=== PATIENT | male | born 1995 | race Caucasian/White ===

== ENCOUNTER 2016-09-09 19:24 | Emergency (ER) | payer OTHER | END 2016-09-09 20:20 | disposition home or self-care (01) | LOC: ER 19:24 | DX: S39.012A Strain of muscle, fascia and tendon of lower back, initial encounter (principal); G43.909 Migraine, unspecified, not intractable, without status migrainosus; F17.210 Nicotine dependence, cigarettes, uncomplicated; Z88.6 Allergy status to analgesic agent; X50.0XXA Overexertion from strenuous movement or load, initial encounter; Y92.009 Unspecified place in unspecified non-institutional (private) residence as the place of occurrence of the external cause ==

== ENCOUNTER 2016-10-22 16:25 | Emergency (ER) | payer OTHER | END 2016-10-22 18:42 | disposition home or self-care (01) | LOC: ER 16:25 | DX: S70.01XA Contusion of right hip, initial encounter (principal); S50.811A Abrasion of right forearm, initial encounter; J45.909 Unspecified asthma, uncomplicated; G43.909 Migraine, unspecified, not intractable, without status migrainosus; F17.210 Nicotine dependence, cigarettes, uncomplicated; Z88.6 Allergy status to analgesic agent; V86.59XA Driver of other special all-terrain or other off-road motor vehicle injured in nontraffic accident, initial encounter | CPT/HCPCS: 36415; 73502-RT; 73552-RT; 96374; 96375 ==